=== PATIENT | female | born 1995 | race Two or more races ===

== ENCOUNTER 2023-10-26 09:11 | Emergency (ER) | payer MEDICAID, OTHER ==
[~2023-10-26] VITALS: Ht 152.4 cm; Wt 53.2 kg
[2023-10-26 09:55] VITALS: BP 116/78; PULSE 87; RESP 16; TEMP 98.2; O2SAT 100
[2023-10-26] MEDS ORDERED: BAC09TP TOP (10:06)
[2023-10-26] MEDS: NEOMYCIN-BACITRACIN-POLYM UNITDOSE PKG TOP OINT TOP ONE (10:20)
== END 2023-10-26 10:30 | disposition home or self-care (01) ==
LOC: ER 09:11
DX: S90.822A Blister (nonthermal), left foot, initial encounter (principal); R23.8 Other skin changes; Z79.899 Other long term (current) drug therapy; X58.XXXA Exposure to other specified factors, initial encounter; Y93.89 Activity, other specified; Y92.89 Other specified places as the place of occurrence of the external cause; Y99.8 Other external cause status